=== PATIENT | male | born 1960 | race Caucasian/White ===

== ENCOUNTER 2020-05-10 21:58 | Emergency (ER) | payer OTHER ==
[~2020-05-10 21:58] MED LIST: ABILIFY5 MG PO; CENTRUM ADULTS1 EACH PO; DEPO-TESTO200 MG/1 M IM; EFFEXOR XR150 MG PO; HYDROCODONE-APA1 TAB PO; KLONOPIN0.5 MG PO; LOVASTATIN10 MG PO; METFORMIN HCL500 MG PO; OS-CAL500 MG PO; PLAVIX75 MG PO; TOPAMAX100 MG PO; VITAMIN B-121000 MC1 PO; VITAMIN D-32000 UNI1 PO; ZOLPIDEM 10MG T10 MG PO; ZYRTEC10 M3 PO
[2020-05-10 22:50] LABS: BASOPHIL 0.2 % (0-2); EOSINOPHIL 0.4 % (0-5); HCT 48.3 % (42.0-52.0); HGB 15.7 g/dl (13.2-18.0); LYMPHOCYTE 23.6 % (15-48); MCHC 32.5 g/dL (32.0-36.0); MCV 92.4 fL (78.0-100.0); MONOCYTE 1.6 % (0-12); MPV 10.9 fL (6.0-9.5); NEUTROPHIL 73.8 % (41-80); NRBC 0; PLT 233 K/uL (150-400); RBC 5.23 M/uL (4.70-6.00); RDW 13.9 % (11.5-14.0); WBC 11.4 K/uL (4.0-10.5)
[2020-05-10 23:01] LABS: ALBUMIN 3.5 g/dL (3.4-5.0); BILIRUBIN - TOTAL 0.4 mg/dL (0.2-1.0); BUN/CREAT RATIO (CALC) 9.9 RATIO; CREATININE 1.52 mg/dL (0.67-1.17); GLOBULIN (CALCULATION) 3.5 g/dL; POTASSIUM 3.4 mmol/L (3.5-5.1)
[2020-05-11] MEDS ORDERED: VISTARIL25 MG PO (01:00)
[2020-05-11] MEDS ORDERED: MEDROL 4MG DOSEP4 MG PO (01:00)
== END 2020-05-11 01:38 | disposition home or self-care (01) ==
LOC: FER 21:58
PROVIDERS: Emergency Medicine
DX: L50.0 Allergic urticaria (principal); T36.3X5A Adverse effect of macrolides, initial encounter; E11.9 Type 2 diabetes mellitus without complications
CPT/HCPCS: 36415; 80053; 85025; 93005; J1200; J2405; J2930; J7030

== ENCOUNTER 2020-09-24 12:29 | Emergency (ER) | payer OTHER ==
[~2020-09-24 12:29] MED LIST changes: +MEDROL 4MG DOSEP4 MG PO; +VISTARIL25 MG PO
[2020-09-24 13:21] LABS: BASOPHIL 0.2 % (0-2); EOSINOPHIL 0.1 % (0-5); HCT 49.5 % (42.0-52.0); HGB 16.2 g/dl (13.2-18.0); LYMPHOCYTE 13.3 % (15-48); MCH 29.7 pg (25.0-31.0); MCHC 32.7 g/dL (32.0-36.0); MCV 90.7 fL (78.0-100.0); MONOCYTE 1.9 % (0-12); MPV 11.2 fL (6.0-9.5); NEUTROPHIL 84.2 % (41-80); NRBC 0; PLT 208 K/uL (150-400); RBC 5.46 M/uL (4.70-6.00); RDW 13.3 % (11.5-14.0); WBC 16.6 K/uL (4.0-10.5)
[2020-09-24 13:40] LABS: INR 1.07 (0.9-1.2); PROTHROMBIN TIME 13.3 SECONDS (11.8-13.4); PTT 28.6 SECONDS (24.4-34.7)
[2020-09-24 13:46] LABS: ALBUMIN 4.1 g/dL (3.4-5.0); BILIRUBIN - TOTAL 0.6 mg/dL (0.2-1.0); BUN/CREAT RATIO (CALC) 11.2 RATIO; CREATININE 1.07 mg/dL (0.67-1.17); GLOBULIN (CALCULATION) 3.2 g/dL; TOTAL PROTEIN 7.3 g/dL (6.4-8.2)
== END 2020-09-24 18:07 | disposition home or self-care (01) ==
LOC: FER 12:29
PROVIDERS: Emergency Medicine
DX: R07.89 Other chest pain (principal); Z88.1 Allergy status to other antibiotic agents
CPT/HCPCS: 36415; 71045; 71275; 80053; 83880; 84484; 85025; 85379; 85610; 85730; 93005; J1170; J2405; Q9967